=== PATIENT | male | born 1940 | race Caucasian/White ===

== ENCOUNTER 2022-10-23 09:35 | Day surgery (SDC) | payer MEDICARE ==
[2022-10-22 15:17] VITALS: BMI 25.1
[2022-10-23 11:25] LABS: Anion Gap 15 mmol/L (10-20); BUN (Urea Nitrogen) 13 mg/dL (8.4-25.7); Calc. Creatinine Clearance 91 mL/min (70-130); Calcium 9.8 mg/dL (7.8-10.44); Carbon Dioxide 24 mmol/L (23-31); Chloride 103 mmol/L (98-107); Estimated GFR 92; Glucose 124 mg/dL (83-110); Potassium 3.5 mmol/L (3.5-5.1); Sodium 138 mmol/L (136-145)
[2022-10-23] MEDS ORDERED: PROPOFOL 200 MG/20 ML VIAL ONE (12:00)
[2022-10-23] MEDS ORDERED: Lidocaine 1% PF 5 ML VIAL ONE (12:00)
== END 2022-10-23 14:04 | disposition home or self-care (01) ==
LOC: MRI 09:35
PROVIDERS: ATTEND Neurological Surgery
DX: M51.24 Other intervertebral disc displacement, thoracic region (principal); M48.062 Spinal stenosis, lumbar region with neurogenic claudication; M47.814 Spondylosis without myelopathy or radiculopathy, thoracic region; M47.816 Spondylosis without myelopathy or radiculopathy, lumbar region; H26.9 Unspecified cataract; H40.9 Unspecified glaucoma; I10 Essential (primary) hypertension; E11.9 Type 2 diabetes mellitus without complications; F32.A Depression, unspecified; Z96.649 Presence of unspecified artificial hip joint; Z90.49 Acquired absence of other specified parts of digestive tract; Z87.891 Personal history of nicotine dependence; Z79.84 Long term (current) use of oral hypoglycemic drugs; Z79.899 Other long term (current) drug therapy
CPT/HCPCS: 72100; 72146; 72148; 80048; J2704

== ENCOUNTER 2023-02-04 05:52 | Inpatient (IN) | payer MEDICARE ==
[2023-02-03 10:03] VITALS: BMI 29.5
[2023-02-04] MEDS ORDERED: EPINEPHrine 1 MG/ML VIAL ONE (06:10)
[2023-02-04] MEDS ORDERED: Thrombin 5000 UNITS/5 ML VIAL ONE (06:10)
[2023-02-04] MEDS ORDERED: Vancomycin 1 GM VIAL ONE (06:10)
[2023-02-04] MEDS ORDERED: Bupivacaine PF 0.5% 30 ML VIAL ONE (06:11)
[2023-02-04] MEDS ORDERED: Ketamine In 0.9 % NaCl 50 MG/5 ML SYRINGE ONE (06:13)
[2023-02-04] MEDS ORDERED: Fentanyl 250 MCG/5 ML VIAL ONE (06:13)
[2023-02-04] MEDS ORDERED: Albumin 5% 250 ML ONE (06:14)
[2023-02-04 06:38] LABS: #Basophils 0.1 thou/uL (0.0-0.2); #Eosinphils 0.4 thou/uL (0.0-0.7); #Monocytes 0.7 thou/uL (0.11-0.59); #Neutrophils 5.5 thou/uL (1.40-6.50); %Basophils 0.8 % (0.0-1.0); %Eosinophils 4.7 % (0.0-10.0); %Lymphocytes 25.8 % (21.0-51.0); %Monocytes 7.9 % (0.0-10.0); %Neutrophils 60.5 % (42.0-75.0); Hematocrit 44.4 % (42.0-52.0); Hemoglobin 15.3 g/dL (14.0-18.0); Mean Corpuscular HGB CONC 34.5 g/dL (32.0-36.0); Mean Corpuscular Hemoglobin 31.1 pg (27.0-31.0); Mean Corpuscular Volume 90.2 fl (78.0-98.0); Mean Platelet Volume 10.5 fL (7.4-10.4); Platelet Count 187 10x3/uL (130-400); RBC Distribution Width 12.3 % (11.5-14.5); Red Blood Cell (RBC) Count 4.92 mill/uL (4.70-6.10)
[2023-02-04] MEDS ORDERED: CEFAZOLIN 2 GM VIAL ONE (06:43)
[2023-02-04] MEDS ORDERED: Sodium Chloride 0.9% 100 ML ONE ×2 (06:43→09:36)
[2023-02-04] MEDS ORDERED: Milk Of Magnesia 30 ML UDCUP PO PRN (06:46)
[2023-02-04] MEDS ORDERED: Ondansetron PF 4 MG/2 ML Vial IVP PRN (06:46)
[2023-02-04] MEDS ORDERED: Promethazine HCl 25 MG/ML VIAL IM PRN ×2 (06:46→13:55)
[2023-02-04] MEDS ORDERED: diphenhydrAMINE 50 MG/ML VIAL IVP PRN (06:46)
[2023-02-04] MEDS ORDERED: Acetaminophen 325 MG TAB PO PRN (06:46)
[2023-02-04] MEDS ORDERED: Mag-Al 1200 mg/1200 mg/30 ML UDCUP PO PRN (06:46)
[2023-02-04 06:52] LABS: Prothrombin Time 13.7 sec (12.0-14.7)
[2023-02-04 06:53] LABS: PTT 28.7 sec (22.9-36.1)
[2023-02-04 06:57] LABS: Anion Gap 16 mmol/L (10-20); BUN (Urea Nitrogen) 18 mg/dL (8.4-25.7); Calc. Creatinine Clearance 95 mL/min (70-130); Calcium 9.6 mg/dL (7.8-10.44); Carbon Dioxide 24 mmol/L (23-31); Chloride 104 mmol/L (98-107); Estimated GFR 88; Glucose 129 mg/dL (83-110); Sodium 140 mmol/L (136-145)
[2023-02-04] MEDS ORDERED: PROPOFOL 20 ML ONE (06:57)
[2023-02-04] MEDS ORDERED: Rocuronium Bromide 10 MG/ML (10ML VIAL) ONE (06:57)
[2023-02-04] MEDS ORDERED: Lidocaine 1% PF 5 ML VIAL ONE (06:57)
[2023-02-04] MEDS ORDERED: MINERAL OIL/WHITE PETROLATUM 3.5 GM TUBE ONE (06:58)
[2023-02-04] MEDS ORDERED: ePHEDrine Sulfate 50 MG/10 ML VIAL ONE (07:56)
[2023-02-04] MEDS ORDERED: Dexmedetomidine 200 MCG/2 ML VIAL ONE (09:37)
[2023-02-04] MEDS ORDERED: Vecuronium 10 MG VIAL ONE ×2 (09:41→11:57)
[2023-02-04] MEDS ORDERED: Sterile Water 20 ML ONE (10:58)
[2023-02-04] MEDS ORDERED: CEFAZOLIN 1 GM VIAL ONE (10:58)
[2023-02-04] MEDS ORDERED: Metoclopramide HCl 10 MG (2 mL) VIAL ONE (13:07)
[2023-02-04] MEDS ORDERED: Ondansetron PF 4 MG/2 ML Vial ONE (13:07)
[2023-02-04] MEDS ORDERED: NEOSTIGMINE 3 MG/3 ML SYR 3 MG/3 ML SYRINGE ONE (13:26)
[2023-02-04] MEDS ORDERED: Glycopyrrolate 0.2 MG/ML 5 ML SYRINGE ONE (13:26)
[2023-02-04] MEDS ORDERED: Morphine Sulfate 2 MG/ML SYRINGE SLOW IVP PRN (13:55)
[2023-02-04] MEDS ORDERED: PACU-Morphine 4MG/ML VIAL SLOW IVP PRN (13:55)
[2023-02-04] MEDS ORDERED: HYDROmorphone 2 MG/ML VIAL SLOW IVP PRN (13:55)
[2023-02-04] MEDS ORDERED: Ondansetron HCl/PF 4 MG/2 ML Vial IVP PRN (13:55)
[2023-02-04] MEDS ORDERED: CEFAZOLIN 2 GM in Sodium Chloride 0.9% 100 ML IVPB SCH (14:00)
[2023-02-04] MEDS ORDERED: fentaNYL 50 mcg/mL 1 mL Vial ONE (15:10)
[2023-02-04] MEDS: Morphine 2 MG/ML VIAL SLOW IVP PRN ×2 (17:07→22:39)
[2023-02-04] MEDS: Sodium Chloride 0.9% 1,000 ML IV SCH ×2 (17:20→19:49)
[2023-02-04] MEDS: tiZANidine HCl 4 MG TAB PO PRN (18:10)
[2023-02-04] MEDS: CEFAZOLIN 2 GM in Sodium Chloride 0.9% 100 ML IVPB SCH (19:44)
[2023-02-04] MEDS ORDERED: Morphine 4 MG/ML VIAL SLOW IVP SCH (20:00)
[2023-02-04] MEDS: HYDROcodone/Acetaminophen 10/325 mg Tablet PO PRN (22:34)
[2023-02-05] MEDS: Morphine 2 MG/ML VIAL SLOW IVP PRN ×4 (01:42→21:40)
[2023-02-05] MEDS: Acetaminophen/Codeine 30-300mg Tablet PO PRN ×4 (01:43→19:47)
[2023-02-05] MEDS: HYDROcodone/Acetaminophen 10/325 mg Tablet PO PRN ×3 (02:38→21:41)
[2023-02-05] MEDS: Sodium Chloride 0.9% 1,000 ML IV SCH ×2 (03:56→19:54)
[2023-02-05] MEDS: CEFAZOLIN 2 GM in Sodium Chloride 0.9% 100 ML IVPB SCH (05:19)
[2023-02-05] MEDS: Tamsulosin HCl 0.4 MG CAP PO SCH ×2 (05:19→19:48)
[2023-02-05 06:02] LABS: #Basophils 0.1 thou/uL (0.0-0.2); #Neutrophils 9.2 thou/uL (1.40-6.50); %Basophils 0.4 % (0.0-1.0); %Eosinophils 0.3 % (0.0-10.0); %Lymphocytes 11.4 % (21.0-51.0); %Monocytes 8.9 % (0.0-10.0); %Neutrophils 78.7 % (42.0-75.0); Mean Corpuscular HGB CONC 33.5 g/dL (32.0-36.0); Mean Corpuscular Hemoglobin 31.3 pg (27.0-31.0); Mean Platelet Volume 10.8 fL (7.4-10.4); Platelet Count 143 10x3/uL (130-400); RBC Distribution Width 12.7 % (11.5-14.5); Red Blood Cell (RBC) Count 3.39 mill/uL (4.70-6.10); White Blood Cell (WBC) Count 11.7 10x3/uL (4.8-10.8)
[2023-02-05 06:11] LABS: Hematocrit 31.6 % (42.0-52.0); Hemoglobin 10.6 g/dL (14.0-18.0); Mean Corpuscular Volume 93.2 fl (78.0-98.0)
[2023-02-05 06:41] LABS: Anion Gap 11 mmol/L (10-20); BUN (Urea Nitrogen) 23 mg/dL (8.4-25.7); Calc. Creatinine Clearance 99 mL/min (70-130); Calcium 7.5 mg/dL (7.8-10.44); Carbon Dioxide 24 mmol/L (23-31); Chloride 105 mmol/L (98-107); Estimated GFR 89; Glucose 132 mg/dL (83-110); Potassium 4.2 mmol/L (3.5-5.1); Sodium 136 mmol/L (136-145)
[2023-02-05 12:07] LABS: Hematocrit 34.2 % (42.0-52.0); Hemoglobin 11.3 g/dL (14.0-18.0)
[2023-02-05] MEDS ORDERED: Docusate 100 MG CAP PO PRN (12:31)
[2023-02-05] MEDS ORDERED: Polyethylene Glycol 3350 17 GM Packet PO PRN (12:31)
[2023-02-05] MEDS ORDERED: Dextrose 5% in Water 1,000 ML IV PRN (12:35)
[2023-02-05] MEDS ORDERED: HumaLOG 300 UNITS/3 ML VIAL SC PRN (12:35)
[2023-02-05] MEDS ORDERED: Dextrose 50% Abboject 50 ML SYRINGE SLOW IVP PRN (12:35)
[2023-02-05] MEDS ORDERED: Glucagon 1 MG/ML KIT IM PRN (12:35)
[2023-02-05] MEDS: metFORMIN 500 MG TAB PO SCH (17:25)
[2023-02-05] MEDS: tiZANidine HCl 4 MG TAB PO PRN (20:34)
[2023-02-05] MEDS: traZODone HCl 50 MG TAB PO PRN (20:38)
[2023-02-05] MEDS ORDERED: Latanoprostene Bunod [Vyzulta] 5 ML Drops EA EYE SCH (21:00)
[2023-02-06 04:04] LABS: Hematocrit 34.9 % (42.0-52.0); Hemoglobin 11.5 g/dL (14.0-18.0); Mean Corpuscular Hemoglobin 31.4 pg (27.0-31.0); Mean Corpuscular Volume 95.4 fl (78.0-98.0); Mean Platelet Volume 10.7 fL (7.4-10.4); Platelet Count 109 10x3/uL (130-400); RBC Distribution Width 12.5 % (11.5-14.5); Red Blood Cell (RBC) Count 3.66 mill/uL (4.70-6.10); White Blood Cell (WBC) Count 10.2 10x3/uL (4.8-10.8)
[2023-02-06 04:14] LABS: Hemoglobin A1c 6.2 % (4.0-6.0)
[2023-02-06 04:28] LABS: ALT (SGPT) 20 U/L (8-55); AST (SGOT) 51 U/L (5-34); Albumin 3.2 g/dL (3.4-4.8); Alkaline Phosphatase 47 U/L (40-110); Anion Gap 12 mmol/L (10-20); BUN (Urea Nitrogen) 16 mg/dL (8.4-25.7); Bilirubin, Total 0.6 mg/dL (0.2-1.2); Calc. Creatinine Clearance 104 mL/min (70-130); Calcium 7.8 mg/dL (7.8-10.44); Carbon Dioxide 21 mmol/L (23-31); Chloride 106 mmol/L (98-107); Estimated GFR 91; Globulin 2.3 g/dL (2.4-3.5); Glucose 125 mg/dL (83-110); Potassium 3.9 mmol/L (3.5-5.1); Protein, Total 5.5 g/dL (5.8-8.1); Sodium 135 mmol/L (136-145)
[2023-02-06] MEDS: Tamsulosin HCl 0.4 MG CAP PO SCH ×2 (04:46→20:28)
[2023-02-06] MEDS: Morphine 2 MG/ML VIAL SLOW IVP PRN ×3 (04:46→23:41)
[2023-02-06] MEDS: HYDROcodone/Acetaminophen 10/325 mg Tablet PO PRN ×4 (04:46→22:34)
[2023-02-06] MEDS ORDERED: LUTEIN 10 MG PO SCH ×2 (09:00)
[2023-02-06] MEDS ORDERED: Non-Formulary Item 1 EACH (Omeprazole [Omeprazole] 20 MG Capsule.Dr) PO SCH (09:00)
[2023-02-06] MEDS ORDERED: Non-Formulary Item 1 EACH (Multivitamin [Multi-Vitamin Daily] 1 TABLET Tablet) PO SCH (09:00)
[2023-02-06] MEDS: metFORMIN 500 MG TAB PO SCH ×2 (09:40→16:22)
[2023-02-06] MEDS: Sertraline 100 MG TAB PO SCH (09:41)
[2023-02-06] MEDS: Multivit, Therapeutic 1 TAB PO SCH (09:41)
[2023-02-06] MEDS ORDERED: Polyethylene Glycol 3350 17 GM Packet PO SCH (12:30)
[2023-02-06] MEDS ORDERED: Docusate 100 MG CAP PO SCH (12:30)
[2023-02-06] MEDS: tiZANidine HCl 4 MG TAB PO PRN ×2 (16:22→23:41)
[2023-02-06] MEDS: traZODone HCl 50 MG TAB PO PRN (22:34)
[2023-02-07] MEDS: HYDROcodone/Acetaminophen 10/325 mg Tablet PO PRN ×4 (05:18→19:59)
[2023-02-07] MEDS: Tamsulosin HCl 0.4 MG CAP PO SCH ×2 (05:18→20:00)
[2023-02-07] MEDS: Multivit, Therapeutic 1 TAB PO SCH (08:54)
[2023-02-07] MEDS: Sertraline 100 MG TAB PO SCH (08:55)
[2023-02-07] MEDS: metFORMIN 500 MG TAB PO SCH ×2 (08:55→17:15)
[2023-02-07] MEDS: HYDROcodone/Acetaminophen 7.5/325 mg Tablet PO PRN ×2 (15:51→23:13)
[2023-02-07] MEDS ORDERED: Non-Formulary Item 1 EACH (Latanoprostene Bunod [Vyzulta] 5 ML Drops) OP PRN (16:38)
[2023-02-07] MEDS: tiZANidine HCl 4 MG TAB PO PRN (18:08)
[2023-02-07] MEDS: Morphine 2 MG/ML VIAL SLOW IVP PRN (19:55)
[2023-02-08] MEDS: Morphine 2 MG/ML VIAL SLOW IVP PRN (01:05)
[2023-02-08] MEDS: HYDROcodone/Acetaminophen 10/325 mg Tablet PO PRN ×2 (03:15→12:46)
[2023-02-08] MEDS: Tamsulosin HCl 0.4 MG CAP PO SCH (05:08)
[2023-02-08] MEDS: Sertraline 100 MG TAB PO SCH (08:02)
[2023-02-08] MEDS: Multivit, Therapeutic 1 TAB PO SCH (08:02)
[2023-02-08] MEDS: metFORMIN 500 MG TAB PO SCH (08:02)
[2023-02-08 12:42] VITALS: BP 168/69; TEMP 97.2
== END 2023-02-08 14:15 | disposition home or self-care (01) | DRG 455 ==
LOC: SURG A 05:52
PROVIDERS: ADMIT Neurological Surgery; ATTEND Neurological Surgery
PROC: 01NB0ZZ Release Lumbar Nerve, Open Approach (ICD-10-PCS; principal; 2023-02-04)
PROC: 0SG30AJ Fusion of Lumbosacral Joint with Interbody Fusion Device, Posterior Approach, Anterior Column, Open Approach (ICD-10-PCS; 2023-02-04)
PROC: 0SG3071 Fusion of Lumbosacral Joint with Autologous Tissue Substitute, Posterior Approach, Posterior Column, Open Approach (ICD-10-PCS; 2023-02-04)
PROC: 3E033XZ Introduction of Vasopressor into Peripheral Vein, Percutaneous Approach (ICD-10-PCS; 2023-02-04)
PROC: 30233J1 Transfusion of Nonautologous Serum Albumin into Peripheral Vein, Percutaneous Approach (ICD-10-PCS; 2023-02-04)
DX: M48.062 Spinal stenosis, lumbar region with neurogenic claudication (principal); M43.16 Spondylolisthesis, lumbar region; M76.32 Iliotibial band syndrome, left leg; I10 Essential (primary) hypertension; Z96.649 Presence of unspecified artificial hip joint; Z90.49 Acquired absence of other specified parts of digestive tract; Z83.3 Family history of diabetes mellitus; Z87.891 Personal history of nicotine dependence; Z79.899 Other long term (current) drug therapy; M54.16 Radiculopathy, lumbar region; Z79.82 Long term (current) use of aspirin; Z79.84 Long term (current) use of oral hypoglycemic drugs; Z98.890 Other specified postprocedural states; R73.03 Prediabetes; D64.9 Anemia, unspecified
CPT/HCPCS: 36415; 36416; 80048; 80053; 83036; 85025; 85027; 85610; 85730; 86850; 86900; 86901; 93005; 93010; 93970; A4314; C1713; C1889; J0171; J0690; J2270; J2272; J2405; J2704; J2765; J3010; J3370; J3490; J7050; P9045; S0020